=== PATIENT | female | born 1965 | race Caucasian/White ===

== ENCOUNTER 2019-03-05 08:09 | Outpatient (CLI) | payer BC ==
[~2019-03-05] VITALS: Ht 175.3 cm; Wt 120.5 kg
[2019-03-05 08:44] LABS: BASOPHILS 0.5 % (0-2); EOSINOPHILS 4.8 % (0-7); HEMATOCRIT 40.4 % (36.0-48.0); HEMOGLOBIN 13.6 g/dL (12-16); IMMATURE GRANULOCYTES 0.2 % (0-5); LYMPHOCYTES 17.9 % (15-50); MCH 29.9 pg (26.0-34.0); MCHC 33.7 g/dL (31.0-37.0); MCV 88.8 fL (80.0-100.0); MEAN PLATELET VOLUME 9.2 fL (7.4-10.4); MONOCYTES 11.9 % (2-11); NEUTROPHILS 64.7 % (40-80); PLATELET COUNT 185 10x3/uL (130-400); RBC 4.55 10x6/uL (4.00-5.40); RDW 14.4 % (11.5-14.5); WBC 4.1 10x3/uL (4.8-10.8)
[2019-03-05 08:54] LABS: INR 1.04 (0.85-1.17); PROTIME 13.1 SECONDS (11.6-15.0)
[2019-03-05 08:55] LABS: APTT 27.2 SECONDS (22.8-39.4)
[2019-03-05 08:56] LABS: ANION GAP 11.2 mmol/L (8-16); CREATININE - SERUM 1.3 mg/dL (0.6-1.3); POTASSIUM - SERUM 5.2 mmol/L (3.5-5.1)
[2019-03-05 09:40] VITALS: Ht 175.3 cm; Wt 120.5 kg
== END 2019-03-05 15:00 | disposition home or self-care (01) ==
LOC: D.SP 08:09 → D.CT 10:30 → D.SP 10:30 → D.CT 13:00 → D.SP 15:00
PROVIDERS: Radiology Diagnostic Radiology; ATTEND Internal Medicine Gastroenterology
DX: K76.0 Fatty (change of) liver, not elsewhere classified (principal); Z01.812 Encounter for preprocedural laboratory examination